=== PATIENT | male | born 1950 | race Caucasian/White ===

== ENCOUNTER 2018-12-03 10:37 | Emergency (ER) | payer OTHER, SELFPAY ==
[2018-12-03 10:42] VITALS: BP 152/85; PULSE 96; RESP 22; TEMP 36.6; O2SAT 96
--- NOTE | 2018-12-03 10:53 | ED.SOB ---
HPI - SOB/Dyspnea General Chief Complaint: Shortness of Breath/Dyspnea Stated Complaint: WATER ON LUNGS Time Seen by Provider: 12/03/18 10:50 Source: patient Mode of arrival: ambulatory Limitations: no limitations History of Present Illness the patient is a 68-year-old male with history of COPD but has quit smoking 20 years ago of presenting with increasing shortness of breath. He took his last dose of Levaquin on a 10 day course for COPD exacerbation today. He has also been on a course of prednisone. He does not feel any better. He complains of shortness of breath at rest and with exertion. He denies orthopnea. He does have a clear productive sputum. No chest pain tightness or heart palpitations. He has no fever chills or body aches. MD Complaint: shortness of breath Known history of: COPD Related Data Home Medications Medication Instructions Recorded Confirmed ipratropium-albuterol 3 ml INH PRN PRN 12/03/18 12/03/18 multivitamin 1 tab PO DAILY 12/03/18 12/03/18 Previous Rx's Medication Instructions Recorded Advair Diskus 1 puff INH BID #2 inh 02/19/18 doxycycline hyclate 100 mg PO BID #14 tab 12/03/18 prednisone 10 mg PO DAILY #30 tab 12/03/18 Allergies Allergy/AdvReac Type Severity Reaction Status Date / Time bee venom protein (honey bee) Allergy Severe ANAPHYLAXIS Verified 12/03/18 09:17 [BEE VENOM PROTEIN (HONEY BEE)] Review of Systems Review of Systems ROS Unobtainable: All systems reviewed & are unremarkable except as noted in HPI and below Constitutional Denies chills, Denies fever(s), Denies lethargy and Denies weakness Cardiovascular Denies chest pain, Denies irregular heart rhythm, Denies lightheadedness, Denies palpitations and Denies orthopnea Respiratory Reports as per HPI Gastrointestinal Gastrointestinal: Denies abdominal pain, Denies change in bowel habits, Denies diarrhea, Denies nausea and Denies vomiting Genitourinary Denies hematuria, Denies flank pain, Denies urinary incontinence and Denies urinary urgency Musculoskeletal Denies back pain, Denies muscle weakness, Denies numbness and Denies tingling Integumentary/Breasts Denies pruritus, Denies erythema, Denies rash and Denies wounds Neurologic Denies numbness, Denies tingling and Denies weakness Endocrine Denies palpitations PFSH Medical History COPD (chronic obstructive pulmonary disease) (Acute) Social History Smoking Status: Former smoker Social History Smoking Status: Former smoker Exam Initial Vital Signs Initial Vital Signs: Vital Signs Temperature 97.8 F 12/03/18 10:42 Pulse Rate 96 H 12/03/18 10:42 Respiratory Rate 22 12/03/18 10:42 Blood Pressure 152/85 H 12/03/18 10:42 Pulse Oximetry 96 12/03/18 10:42 GENERAL: alert well-appearing male HEENT: Head atraumatic,EOMI, pupils reactive, face symmetric CARDIOVASCULAR: Regular rate and rhythm without murmurs, rubs or gallops. RESPIRATORY: coarse breath sounds bilaterally minimal wheezing speaks in full sentences no respiratory distress ABDOMEN: Soft, nontender. Normoactive bowel sounds all 4 quadrants. No guarding or rebound. : No CVA tenderness EXTREMITIES: Normal range of motion, no clubbing or edema. Neurovascularly intact NEUROLOGICAL: Alert and oriented x4.Normal gait and speech. SKIN: Warm, dry, no laceration, no petechiae, no rashes or lesions. Course Orders Ordered: ED Orders 12/03/18 10:59 Consult to Respiratory Therapy Evaluate & Treat XR chest 2V Stat EKG-12 Lead Stat 12/03/18 11:11 B Type Natriuretic Peptide Stat Complete Blood Count AUTO DIFF Stat Comprehensive Metabolic Panel Stat Magnesium Stat Partial Thromboplastin Time Stat Procalcitonin Stat Prothrombin Time INR Stat Troponin & CK Cardiac Panel Stat 12/03/18 12:08 CT angio chest PE protocol Stat Discontinued Medications Albuterol/Ipratropium (Duoneb) 3 ml INH NOW ONE Stop: 12/03/18 11:01 Last Admin: 12/03/18 11:01 Dose: 3 ml Vital Signs - 8 hr 12/03/18 10:42 12/03/18 11:02 12/03/18 11:09 Temperature 97.8 F Pulse Rate 96 H 93 H 101 H Respiratory Rate 22 14 20 Blood Pressure 152/85 H Blood Pressure [Left Arm] 143/80 H Pulse Oximetry 96 97 98 12/03/18 13:03 Temperature Pulse Rate 97 H Respiratory Rate 23 Blood Pressure Blood Pressure [Left Arm] Pulse Oximetry 88 L MDM - SOB/Dyspnea Lab Data Attestation: I reviewed the patient's lab results. Result diagrams: 12/03/18 11:11 12/03/18 11:11 Lab Results 12/03/18 12/03/18 12/03/18 Range/Units 11:11 11:11 11:11 WBC 15.8 H (4.5-11.0) X10^3/uL RBC 4.51 (4.5-5.9) X10^6/uL Hgb 14.3 (13.5-17.5) g/dL Hct 41.7 (41-53) % MCV 92.3 (80-100) fL MCH 31.6 (26-34) PG MCHC 34.2 (30-36) % RDW 13.2 (11.6-14.8) % Plt Count 528 H (150-400) X10^3/uL Neut % (Auto) 81.4 H (50-75) % Lymph % (Auto) 12.1 L (25-40) % Dale % (Auto) 5.8 (3-14) % Eos % (Auto) 0.3 L (2-4) % Baso % (Auto) 0.4 (0-2) % Neut # (Auto) 51112 H (0315-1301) /uL Lymph # (Auto) 1900 (9716-2566) /uL Dale # (Auto) 900 (0-900) /uL Eos # (Auto) 0 (0-450) /uL Baso # (Auto) 100 (0-100) /uL PT 13.9 H (10.1-12.7) SECONDS INR 1.2 (0.9-1.3) APTT 33 (26.4-36.2) SECONDS Sodium 138 (137-145) mmol/L Potassium 4.2 (3.4-5.1) mmol/L Chloride 100 (98-107) mmol/L Carbon Dioxide 25 (22-32) mmol/L BUN 15 (9-20) mg/dL Creatinine 0.80 (0.66-1.25) mg/dL Estimated GFR > 60.0 (>60) mL/min BUN/Creatinine Ratio 18.8 (6-22) Glucose 116 H (80-110) mg/dL Calcium 9.2 (8.4-10.2) mg/dL Magnesium 2.0 (1.6-2.3) mg/dL Total Bilirubin 1.2 (0.2-1.3) mg/dL AST 32 (17-59) IU/L ALT 111 H (21-72) IU/L Alkaline Phosphatase 84 (38-126) U/L Total Creatine Kinase 29 L (55-170) U/L CK-MB (CK-2) TNP CK-MB (CK-2) Rel Index TNP Troponin I < 0.012 (0.01-0.034) ng/mL B-Natriuretic Peptide 131 H (<100) Total Protein 7.4 (6.3-8.2) g/dL Albumin 4.2 (3.5-5.0) g/dL Globulin 3.2 (1.7-4.1) g/dL Albumin/Globulin Ratio 1.3 (1.0-2.8) Procalcitonin (<0.5) ng/mL 12/03/18 Range/Units 11:11 WBC (4.5-11.0) X10^3/uL RBC (4.5-5.9) X10^6/uL Hgb (13.5-17.5) g/dL Hct (41-53) % MCV (80-100) fL MCH (26-34) PG MCHC (30-36) % RDW (11.6-14.8) % Plt Count (150-400) X10^3/uL Neut % (Auto) (50-75) % Lymph % (Auto) (25-40) % Dale % (Auto) (3-14) % Eos % (Auto) (2-4) % Baso % (Auto) (0-2) % Neut # (Auto) (5958-4228) /uL Lymph # (Auto) (6936-5865) /uL Dale # (Auto) (0-900) /uL Eos # (Auto) (0-450) /uL Baso # (Auto) (0-100) /uL PT (10.1-12.7) SECONDS INR (0.9-1.3) APTT (26.4-36.2) SECONDS Sodium (137-145) mmol/L Potassium (3.4-5.1) mmol/L Chloride (98-107) mmol/L Carbon Dioxide (22-32) mmol/L BUN (9-20) mg/dL Creatinine (0.66-1.25) mg/dL Estimated GFR (>60) mL/min BUN/Creatinine Ratio (6-22) Glucose (80-110) mg/dL Calcium (8.4-10.2) mg/dL Magnesium (1.6-2.3) mg/dL Total Bilirubin (0.2-1.3) mg/dL AST (17-59) IU/L ALT (21-72) IU/L Alkaline Phosphatase (38-126) U/L Total Creatine Kinase (55-170) U/L CK-MB (CK-2) CK-MB (CK-2) Rel Index Troponin I (0.01-0.034) ng/mL B-Natriuretic Peptide (<100) Total Protein (6.3-8.2) g/dL Albumin (3.5-5.0) g/dL Globulin (1.7-4.1) g/dL Albumin/Globulin Ratio (1.0-2.8) Procalcitonin < 0.05 (<0.5) ng/mL Imaging Data Chest x-ray: Radiologist's impression: PROCEDURE: XR CHEST 2V INDICATIONS: short of breath, crackles TECHNIQUE: 2 views of the chest were acquired. COMPARISON: [facility], CHEST 2 VIEW, 09/11/2017, 12:11. FINDINGS: Surgical changes and devices: None. Lungs and pleura: Patchy opacity noted in the posterior aspect of the left lung base concerning for aspiration versus pneumonia. No pleural effusions or pneumothorax. Mediastinum: Mediastinal contours are normal. Heart size is normal. Bones and chest wall: No suspicious bony abnormalities. Soft tissues appear unremarkable. IMPRESSION: Posterior left basilar opacity suspicious for aspiration versus pneumonia. Dictated by: Arina Dennis MD, PhD on 12/03/2018 at 11:26 CT scan - chest: Radiologist's impression: PROCEDURE: CT ANGIO CHEST PE PROTOCOL INDICATIONS: short of breath TECHNIQUE: After the administration of intravenous contrast, 2 mm thick sections acquired from the pulmonary apices to the posterior costophrenic angles. 3-dimensional maximum intensity projection (MIP) coronal and sagittal reformats were then acquired through the thorax. For radiation dose reduction, the following was used: automated exposure control, adjustment of mA and/or kV according to patient size. COMPARISON: [facility], XR CHEST 2V, 12/03/2018, 11:14. FINDINGS: Image quality: Excellent. Pulmonary arteries: Pulmonary arteries are normal in size, and demonstrate no intraluminal filling defects to suggest central pulmonary embolism. Lungs and pleura: Moderate apical predominant emphysema. Moderate left posterior lung base airspace opacity, consistent with pneumonia, as seen by plain film examination. Mild patchy opacity within the right lung base, consistent with pneumonia. Mild scattered groundglass nodular densities within the bilateral upper lobes, consistent with endobronchial spread of pneumonia. No pleural effusions or pneumothorax. Central and peripheral airways are patent. Mediastinum: Heart size is normal, without pericardial effusion. Left infrahilar adenopathy measuring 15 mm. 13 mm short axis subcarinal/periesophageal adenopathy. 15 mm short axis right infrahilar adenopathy. Thoracic aorta is normal in caliber and enhancement. Esophagus is normal in caliber, without hiatal hernia. Bones and chest wall: No suspicious bony lesions. Ribs and thoracic spine appear intact throughout. Thyroid gland demonstrates bilateral nodules, largest of which are in the right lobe, measuring 13 mm anteriorly and 8 mm posteriorly.. No axillary or supraclavicular adenopathy. Abdomen: Visualized upper abdominal solid organs appear normal in the early arterial phase of enhancement. IMPRESSION: 1. Left lung base pneumonia, as seen by plain film examination. Lesser degrees of pneumonia are seen elsewhere within the bilateral lung parenchyma. 2. Mediastinal and hilar adenopathy, presumably reactive. Followup chest CT with contrast in one month is recommended to assure resolution, and to exclude underlying malignancy. 3. Thyroid nodules, which could be further assessed with ultrasound, if clinically indicated. 4. No evidence of pulmonary embolus. Dictated by: Humphrey Valverde M.D. on 12/03/2018 at 12:33 ECG Data Attestation: I personally reviewed and interpreted this ECG as follows: Prior ECG tracings: available for review ( From walk-in clinic) Interpretation: normal sinus rhythm rate 90 RI [address] changes no T-wave inversions similar to previous 1 earlier in the day MDM Narrative Medical decision making narrative: patient's history of COPD. He stating that the breathing treatment he received here seemed to open up more. His he had 1 at the walk-in clinic and did not have much relief. He does have leukocytosis persistent pneumonia on x-ray and persistent cough. CT ruled out PE. The patient is still having signs and symptoms of pneumonia with radiological evidence and leukocytosis. PATIENT AMBULATION TRIAL OF TO SATS DROPPED TO 87 88%. WITH REST THEY DO QUICKLY COME BACK UP. PATIENT IS REQUESTING TO GO HOME RATHER THAN BE ADMITTED TO HOSPITAL. I spoke with Dr. Brown who agrees to follow up on Friday. Aware that the patient's oxygen level does decrease but does quickly recover and patient wanting to go home. Discharge Plan Departure Patient Disposition: Home Clinical Impression: Pneumonia Qualifiers: Pneumonia type: due to unspecified organism Laterality: left Lung location: lower lobe of lung Qualified Code(s): J18.1 - Lobar pneumonia, unspecified organism Discharge Date/Time: 12/03/18 13:50 Interventions: ED Discharge Assessment Last Done: 12/03/18 13:50 Instructions: DI for Pneumonia -- Adult Activity Restrictions/Additional Instructions: *You have been diagnosed with left lower lobe pneumonia *What to do: x-ray, CT and blood work do confirm persistent ongoing pneumonia despite antibiotics. At this time no hospitalization required. *Continue to take medications as directed --> SENT TO [facility] IN [place] Prednisone taper as 40 mg for 3 days, 30 mg for 3 days, 20 mg for 3 days, 10 mg for 3 days and stop doxycycline 100 mg twice a day for 7 days continue albuterol nebulizer every 4 hours as needed. *Follow up with Dr. Brown FridayDecember 07 at 2:45 p.m. *Return to ER if you should have increasing shortness of breath, chest pain or any new, worsening or concerning symptoms Prescriptions: New doxycycline hyclate 100 mg tablet 100 mg PO BID Qty: 14 RF: 0 prednisone 10 mg tablet 10 mg PO DAILY Qty: 30 RF: 0 No Action Advair Diskus 250-50 mcg/dose blister with device 1 puff INH BID Qty: 2 RF: 9 ipratropium-albuterol 3 ML solution for nebulization 3 ml INH PRN PRN (Reason: Shortness Of Breath Or Wheezing) RF: 0 multivitamin Tablet 1 tab PO DAILY RF: 0 Referrals: Bruce Brown MD [Primary Care Provider] -
--- NOTE | 2018-12-03 10:58 | ED_ITS ---
HPI - SOB/Dyspnea General Chief Complaint: Shortness of Breath/Dyspnea Stated Complaint: WATER ON LUNGS Time Seen by Provider: 12/03/18 10:50 Source: patient Mode of arrival: ambulatory Limitations: no limitations History of Present Illness the patient is a 68-year-old male with history of COPD but has quit smoking 20 years ago of presenting with increasing shortness of breath. He took his last dose of Levaquin on a 10 day course for COPD exacerbation today. He has also been on a course of prednisone. He does not feel any better. He complains of shortness of breath at rest and with exertion. He denies orthopnea. He does have a clear productive sputum. No chest pain tightness or heart palpitations. He has no fever chills or body aches. MD Complaint: shortness of breath Known history of: COPD Related Data Home Medications Medication Instructions Recorded Confirmed ipratropium-albuterol 3 ml INH PRN PRN 12/03/18 12/03/18 multivitamin 1 tab PO DAILY 12/03/18 12/03/18 Previous Rx's Medication Instructions Recorded Advair Diskus 1 puff INH BID #2 inh 02/19/18 doxycycline hyclate 100 mg PO BID #14 tab 12/03/18 prednisone 10 mg PO DAILY #30 tab 12/03/18 Allergies Allergy/AdvReac Type Severity Reaction Status Date / Time bee venom protein (honey bee) Allergy Severe ANAPHYLAXIS Verified 12/03/18 09:17 [BEE VENOM PROTEIN (HONEY BEE)] Review of Systems Review of Systems ROS Unobtainable: All systems reviewed & are unremarkable except as noted in HPI and below Constitutional Denies chills, Denies fever(s), Denies lethargy and Denies weakness Cardiovascular Denies chest pain, Denies irregular heart rhythm, Denies lightheadedness, Denies palpitations and Denies orthopnea Respiratory Reports as per HPI Gastrointestinal Gastrointestinal: Denies abdominal pain, Denies change in bowel habits, Denies diarrhea, Denies nausea and Denies vomiting Genitourinary Denies hematuria, Denies flank pain, Denies urinary incontinence and Denies urinary urgency Musculoskeletal Denies back pain, Denies muscle weakness, Denies numbness and Denies tingling Integumentary/Breasts Denies pruritus, Denies erythema, Denies rash and Denies wounds Neurologic Denies numbness, Denies tingling and Denies weakness Endocrine Denies palpitations PFSH Medical History COPD (chronic obstructive pulmonary disease) (Acute) Social History Smoking Status: Former smoker Social History Smoking Status: Former smoker Exam Initial Vital Signs Initial Vital Signs: Vital Signs Temperature 97.8 F 12/03/18 10:42 Pulse Rate 96 H 12/03/18 10:42 Respiratory Rate 22 12/03/18 10:42 Blood Pressure 152/85 H 12/03/18 10:42 Pulse Oximetry 96 12/03/18 10:42 GENERAL: alert well-appearing male HEENT: Head atraumatic,EOMI, pupils reactive, face symmetric CARDIOVASCULAR: Regular rate and rhythm without murmurs, rubs or gallops. RESPIRATORY: coarse breath sounds bilaterally minimal wheezing speaks in full sentences no respiratory distress ABDOMEN: Soft, nontender. Normoactive bowel sounds all 4 quadrants. No guarding or rebound. : No CVA tenderness EXTREMITIES: Normal range of motion, no clubbing or edema. Neurovascularly intact NEUROLOGICAL: Alert and oriented x4.Normal gait and speech. SKIN: Warm, dry, no laceration, no petechiae, no rashes or lesions. Course Orders Ordered: ED Orders 12/03/18 10:59 Consult to Respiratory Therapy Evaluate & Treat XR chest 2V Stat EKG-12 Lead Stat 12/03/18 11:11 B Type Natriuretic Peptide Stat Complete Blood Count AUTO DIFF Stat Comprehensive Metabolic Panel Stat Magnesium Stat Partial Thromboplastin Time Stat Procalcitonin Stat Prothrombin Time INR Stat Troponin & CK Cardiac Panel Stat 12/03/18 12:08 CT angio chest PE protocol Stat Discontinued Medications Albuterol/Ipratropium (Duoneb) 3 ml INH NOW ONE Stop: 12/03/18 11:01 Last Admin: 12/03/18 11:01 Dose: 3 ml Vital Signs - 8 hr 12/03/18 10:42 12/03/18 11:02 12/03/18 11:09 Temperature 97.8 F Pulse Rate 96 H 93 H 101 H Respiratory Rate 22 14 20 Blood Pressure 152/85 H Blood Pressure [Left Arm] 143/80 H Pulse Oximetry 96 97 98 12/03/18 13:03 Temperature Pulse Rate 97 H Respiratory Rate 23 Blood Pressure Blood Pressure [Left Arm] Pulse Oximetry 88 L MDM - SOB/Dyspnea Lab Data Attestation: I reviewed the patient's lab results. Result diagrams: 12/03/18 11:11 12/03/18 11:11 Lab Results 12/03/18 12/03/18 12/03/18 Range/Units 11:11 11:11 11:11 WBC 15.8 H (4.5-11.0) X10^3/uL RBC 4.51 (4.5-5.9) X10^6/uL Hgb 14.3 (13.5-17.5) g/dL Hct 41.7 (41-53) % MCV 92.3 (80-100) fL MCH 31.6 (26-34) PG MCHC 34.2 (30-36) % RDW 13.2 (11.6-14.8) % Plt Count 528 H (150-400) X10^3/uL Neut % (Auto) 81.4 H (50-75) % Lymph % (Auto) 12.1 L (25-40) % [place] % (Auto) 5.8 (3-14) % Eos % (Auto) 0.3 L (2-4) % Baso % (Auto) 0.4 (0-2) % Neut # (Auto) 57256 H (7510-7382) /uL Lymph # (Auto) 1900 (8226-8460) /uL [place] # (Auto) 900 (0-900) /uL Eos # (Auto) 0 (0-450) /uL Baso # (Auto) 100 (0-100) /uL PT 13.9 H (10.1-12.7) SECONDS INR 1.2 (0.9-1.3) APTT 33 (26.4-36.2) SECONDS Sodium 138 (137-145) mmol/L Potassium 4.2 (3.4-5.1) mmol/L Chloride 100 (98-107) mmol/L Carbon Dioxide 25 (22-32) mmol/L BUN 15 (9-20) mg/dL Creatinine 0.80 (0.66-1.25) mg/dL Estimated GFR > 60.0 (>60) mL/min BUN/Creatinine Ratio 18.8 (6-22) Glucose 116 H (80-110) mg/dL Calcium 9.2 (8.4-10.2) mg/dL Magnesium 2.0 (1.6-2.3) mg/dL Total Bilirubin 1.2 (0.2-1.3) mg/dL AST 32 (17-59) IU/L ALT 111 H (21-72) IU/L Alkaline Phosphatase 84 (38-126) U/L Total Creatine Kinase 29 L (55-170) U/L CK-MB (CK-2) TNP CK-MB (CK-2) Rel Index TNP Troponin I < 0.012 (0.01-0.034) ng/mL B-Natriuretic Peptide 131 H (<100) Total Protein 7.4 (6.3-8.2) g/dL Albumin 4.2 (3.5-5.0) g/dL Globulin 3.2 (1.7-4.1) g/dL Albumin/Globulin Ratio 1.3 (1.0-2.8) Procalcitonin (<0.5) ng/mL 12/03/18 Range/Units 11:11 WBC (4.5-11.0) X10^3/uL RBC (4.5-5.9) X10^6/uL Hgb (13.5-17.5) g/dL Hct (41-53) % MCV (80-100) fL MCH (26-34) PG MCHC (30-36) % RDW (11.6-14.8) % Plt Count (150-400) X10^3/uL Neut % (Auto) (50-75) % Lymph % (Auto) (25-40) % [place] % (Auto) (3-14) % Eos % (Auto) (2-4) % Baso % (Auto) (0-2) % Neut # (Auto) (2584-4974) /uL Lymph # (Auto) (7689-5589) /uL [place] # (Auto) (0-900) /uL Eos # (Auto) (0-450) /uL Baso # (Auto) (0-100) /uL PT (10.1-12.7) SECONDS INR (0.9-1.3) APTT (26.4-36.2) SECONDS Sodium (137-145) mmol/L Potassium (3.4-5.1) mmol/L Chloride (98-107) mmol/L Carbon Dioxide (22-32) mmol/L BUN (9-20) mg/dL Creatinine (0.66-1.25) mg/dL Estimated GFR (>60) mL/min BUN/Creatinine Ratio (6-22) Glucose (80-110) mg/dL Calcium (8.4-10.2) mg/dL Magnesium (1.6-2.3) mg/dL Total Bilirubin (0.2-1.3) mg/dL AST (17-59) IU/L ALT (21-72) IU/L Alkaline Phosphatase (38-126) U/L Total Creatine Kinase (55-170) U/L CK-MB (CK-2) CK-MB (CK-2) Rel Index Troponin I (0.01-0.034) ng/mL B-Natriuretic Peptide (<100) Total Protein (6.3-8.2) g/dL Albumin (3.5-5.0) g/dL Globulin (1.7-4.1) g/dL Albumin/Globulin Ratio (1.0-2.8) Procalcitonin < 0.05 (<0.5) ng/mL Imaging Data Chest x-ray: Radiologist's impression: PROCEDURE: XR CHEST 2V INDICATIONS: short of breath, crackles TECHNIQUE: 2 views of the chest were acquired. COMPARISON: [facility], CHEST 2 VIEW, 09/11/2017, 12:11. FINDINGS: Surgical changes and devices: None. Lungs and pleura: Patchy opacity noted in the posterior aspect of the left lung base concerning for aspiration versus pneumonia. No pleural effusions or pneumothorax. Mediastinum: Mediastinal contours are normal. Heart size is normal. Bones and chest wall: No suspicious bony abnormalities. Soft tissues appear unremarkable. IMPRESSION: Posterior left basilar opacity suspicious for aspiration versus pn eumonia. Dictated by: Arina Dennis MD, PhD on 12/03/2018 at 11:26 CT scan - chest: Radiologist's impression: PROCEDURE: CT ANGIO CHEST PE PROTOCOL INDICATIONS: short of breath TECHNIQUE: After the administration of intravenous contrast, 2 mm thick sections acquired from the pulmonary apices to the posterior costophrenic angles. 3-dimensional maximum intensity projection (MIP) coronal and sagittal reformats were then acquired through the thorax. For radiation dose reduction, the following was used: automated exposure control, adjustment of mA and/or kV according to patient size. COMPARISON: [facility], XR CHEST 2V, 12/03/2018, 11:14. FINDINGS: Image quality: Excellent. Pulmonary arteries: Pulmonary arteries are normal in size, and demonstrate no intraluminal filling defects to suggest central pulmonary embolism. Lungs and pleura: Moderate apical predominant emphysema. Moderate left posterior lung base airspace opacity, consistent with pneumonia, as seen by plain film examination. Mild patchy opacity within the right lung base, consistent with pneumonia. Mild scattered groundglass nodular densities within the bilateral upper lobes, consistent with endobronchial spread of pneumonia. No pleural effusions or pneumothorax. Central and peripheral airways are patent. Mediastinum: Heart size is normal, without pericardial effusion. Left infrahila r adenopathy measuring 15 mm. 13 mm short axis subcarinal/periesophageal adenopathy. 15 mm short axis right infrahilar adenopathy. Thoracic aorta is normal in caliber and enhancement. Esophagus is normal in caliber, without hiatal hernia. Bones and chest wall: No suspicious bony lesions. Ribs and thoracic spine appear intact throughout. Thyroid gland demonstrates bilateral nodules, largest of which are in the right lobe, measuring 13 mm anteriorly and 8 mm posteriorly.. No axillary or supraclavicular adenopathy. Abdomen: Visualized upper abdominal solid organs appear normal in the early arterial phase of enhancement. IMPRESSION: 1. Left lung base pneumonia, as seen by plain film examination. Lesser degrees of pneumonia are seen elsewhere within the bilateral lung parenchyma. 2. Mediastinal and hilar adenopathy, presumably reactive. Followup chest CT with contrast in one month is recommended to assure resolution, and to exclude underlying malignancy. 3. Thyroid nodules, which could be further assessed with ultrasound, if clinically indicated. 4. No evidence of pulmonary embolus. Dictated by: Humphrey Valverde M.D. on 12/03/2018 at 12:33 ECG Data Attestation: I personally reviewed and interpreted this ECG as follows: Prior ECG tracings: available for review ( From walk-in clinic) Interpretation: normal sinus rhythm rate 90 [address] changes no T- wave inversions similar to previous 1 earlier in the day MDM Narrative Medical decision making narrative: patient's history of COPD. He stating that the breathing treatment he received here seemed to open up more. His he had 1 at the walk-in clinic and did not have much relief. He does have leukocytosis persistent pneumonia on x-ray and persistent cough. CT ruled out PE. The patient is still having signs and symptoms of pneumonia with radiological evidence and leukocytosis. PATIENT AMBULATION TRIAL OF TO SATS DROPPED TO 87 88%. WITH REST THEY DO QUICKLY COME BACK UP. PATIENT IS REQUESTING TO GO HOME RATHER THAN BE ADMITTED TO HOSPITAL. I spoke with Dr. Brown who agrees to follow up on Friday. Aware that the patient's oxygen level does decrease but does quickly recover and patient wanting to go home. Discharge Plan Departure Patient Disposition: Home Clinical Impression: Pneumonia Qualifiers: Pneumonia type: due to unspecified organism Laterality: left Lung location: lower lobe of lung Qualified Code(s): J18.1 - Lobar pneumonia, unspecified organism Discharge Date/Time: 12/03/18 13:50 Interventions: ED Discharge Assessment Last Done: 12/03/18 13:50 Instructions: DI for Pneumonia -- Adult Activity Restrictions/Additional Instructions: *You have been diagnosed with left lower lobe pneumonia *What to do: x-ray, CT and blood work do confirm persistent ongoing pneumonia despite antibiotics. At this time no hospitalization required. *Continue to take medications as directed --> SENT TO [facility] IN [place] Prednisone taper as 40 mg for 3 days, 30 mg for 3 days, 20 mg for 3 days, 10 mg for 3 days and stop doxycycline 100 mg twice a day for 7 days continue albuterol nebulizer every 4 hours as needed. *Follow up with Dr. Brown FridayDecember 07 at 2:45 p.m. *Return to ER if you should have increasing shortness of breath, chest pain or any new, worsening or concerning symptoms Prescriptions: New doxycycline hyclate 100 mg tablet 100 mg PO BID Qty: 14 RF: 0 prednisone 10 mg tablet 10 mg PO DAILY Qty: 30 RF: 0 No Action Advair Diskus 250-50 mcg/dose blister with device 1 puff INH BID Qty: 2 RF: 9 ipratropium-albuterol 3 ML solution for nebulization 3 ml INH PRN PRN (Reason: Shortness Of Breath Or Wheezing) RF: 0 multivitamin Tablet 1 tab PO DAILY RF: 0 Referrals: Bruce Brown MD [Primary Care Provider] -
--- NOTE | 2018-12-03 10:59 | DI.RAD.S_ITS ---
PROCEDURE: XR CHEST 2V INDICATIONS: short of breath, crackles TECHNIQUE: 2 views of the chest were acquired. COMPARISON: [facility], , CHEST 2 VIEW, 09/11/2017, 12:11. FINDINGS: Surgical changes and devices: None. Lungs and pleura: Patchy opacity noted in the posterior aspect of the left lung base concerning for aspiration versus pneumonia. No pleural effusions or pneumothorax. Mediastinum: Mediastinal contours are normal. Heart size is normal. Bones and chest wall: No suspicious bony abnormalities. Soft tissues appear unremarkable. IMPRESSION: Posterior left basilar opacity suspicious for aspiration versus pneumonia. Dictated by: Arina Dennis MD, PhD on 12/03/2018 at 11:26 Approved by: Arina Dennis MD, PhD on 12/03/2018 at 11:27
[2018-12-03] MEDS: ALBUTEROL/IPRATROPIUM 3 ML AMPUL INH (11:01)
[2018-12-03 11:02] VITALS: PULSE 93; RESP 14; O2SAT 97
--- NOTE | 2018-12-03 11:07 | PC.NURSE ---
pt reports, started with flu 15 of november , then dropped down to the lung, coughing, treated with levofloxacin last dose today, took prednisone last dose 3 days ago, continue to have crackles, nebulizer treatment three times a day. still has shortness of breath, denies chest pain, fever or nausea\vomiting. former smoker quit 20 years ago. pt sent from walk in clinic.
[2018-12-03 11:09] VITALS: BP 143/80; PULSE 101; RESP 20; O2SAT 98
[2018-12-03 11:28] LABS: Add Manual Diff / Slide Review NO; Basophils Absolute Auto 100 /uL (0-100); Basophils Percent Auto 0.4 % (0-2); Eosinophils Absolute Auto 0 /uL (0-450); Eosinophils Percent Auto 0.3 % (2-4); Hematocrit 41.7 % (41-53); Hemoglobin 14.3 g/dL (13.5-17.5); INR 1.2 (0.9-1.3); Lymphocytes Absolute Auto 1900 /uL (1100-4500); Lymphocytes Percent Auto 12.1 % (25-40); Mean Corpuscular HGB Conc 34.2 % (30-36); Mean Corpuscular Hemoglobin 31.6 PG (26-34); Mean Corpuscular Volume 92.3 fL (80-100); Monocytes Absolute Auto 900 /uL (0-900); Monocytes Percent Auto 5.8 % (3-14); Neutrophils Absolute Auto 12900 /uL (1500-7000); Neutrophils Percent Auto 81.4 % (50-75); Platelet Count 528 X10^3/uL (150-400); Prothrombin Time 13.9 SECONDS (10.1-12.7); Red Blood Cell Count 4.51 X10^6/uL (4.5-5.9); Red Cell Distribution Width 13.2 % (11.6-14.8); White Blood Cell Count 15.8 X10^3/uL (4.5-11.0)
[2018-12-03 11:31] LABS: PTT Partial Thromboplastin Tim 33 SECONDS (26.4-36.2)
[2018-12-03 11:37] LABS: Alanine Aminotransferase 111 IU/L (21-72); Albumin 4.2 g/dL (3.5-5.0); Albumin Globulin Ratio 1.3 (1.0-2.8); Alkaline Phosphatase 84 U/L (38-126); Aspartate Aminotransferase 32 IU/L (17-59); BUN Creatinine Ratio 18.8 (6-22); Bilirubin Total 1.2 mg/dL (0.2-1.3); Blood Urea Nitrogen 15 mg/dL (9-20); Calcium 9.2 mg/dL (8.4-10.2); Carbon Dioxide 25 mmol/L (22-32); Chloride 100 mmol/L (98-107); Creatine Kinase 29 U/L (55-170); Estimated Glomerular Filt Rate > 60.0 mL/min (>60); Globulin 3.2 g/dL (1.7-4.1); Glucose 116 mg/dL (80-110); HEMOLYSIS < 15 (0-50); Potassium 4.2 mmol/L (3.4-5.1); Sodium 138 mmol/L (137-145); Total Protein 7.4 g/dL (6.3-8.2)
[2018-12-03 11:44] LABS: B Type Natriuretic Peptide 131 (<100)
[2018-12-03 11:47] LABS: Troponin I < 0.012 ng/mL (0.01-0.034)
[2018-12-03 11:52] LABS: Procalcitonin < 0.05 ng/mL (<0.5)
--- NOTE | 2018-12-03 12:08 | DI.CT.S_ITS ---
PROCEDURE: CT ANGIO CHEST PE PROTOCOL INDICATIONS: short of breath TECHNIQUE: After the administration of intravenous contrast, 2 mm thick sections acquired from the pulmonary apices to the posterior costophrenic angles. 3-dimensional maximum intensity projection (MIP) coronal and sagittal reformats were then acquired through the thorax. For radiation dose reduction, the following was used: automated exposure control, adjustment of mA and/or kV according to patient size. COMPARISON: [facility], CR, XR CHEST 2V, 12/03/2018, 11:14. FINDINGS: Image quality: Excellent. Pulmonary arteries: Pulmonary arteries are normal in size, and demonstrate no intraluminal filling defects to suggest central pulmonary embolism. Lungs and pleura: Moderate apical predominant emphysema. Moderate left posterior lung base airspace opacity, consistent with pneumonia, as seen by plain film examination. Mild patchy opacity within the right lung base, consistent with pneumonia. Mild scattered groundglass nodular densities within the bilateral upper lobes, consistent with endobronchial spread of pneumonia. No pleural effusions or pneumothorax. Central and peripheral airways are patent. Mediastinum: Heart size is normal, without pericardial effusion. Left infrahilar adenopathy measuring 15 mm. 13 mm short axis subcarinal/periesophageal adenopathy. 15 mm short axis right infrahilar adenopathy. Thoracic aorta is normal in caliber and enhancement. Esophagus is normal in caliber, without hiatal hernia. Bones and chest wall: No suspicious bony lesions. Ribs and thoracic spine appear intact throughout. Thyroid gland demonstrates bilateral nodules, largest of which are in the right lobe, measuring 13 mm anteriorly and 8 mm posteriorly.. No axillary or supraclavicular adenopathy. Abdomen: Visualized upper abdominal solid organs appear normal in the early arterial phase of enhancement. IMPRESSION: 1. Left lung base pneumonia, as seen by plain film examination. Lesser degrees of pneumonia are seen elsewhere within the bilateral lung parenchyma. 2. Mediastinal and hilar adenopathy, presumably reactive. Followup chest CT with contrast in one month is recommended to assure resolution, and to exclude underlying malignancy. 3. Thyroid nodules, which could be further assessed with ultrasound, if clinically indicated. 4. No evidence of pulmonary embolus. Dictated by: Humphrey Valverde M.D. on 12/03/2018 at 12:33 Approved by: Humphrey Valverde M.D. on 12/03/2018 at 12:38
[2018-12-03 13:03] VITALS: PULSE 97; RESP 23; O2SAT 88
== END 2018-12-03 13:50 | disposition home or self-care (01) ==
PROVIDERS: Emergency Provider Emergency Medicine; PCP Family Medicine
DX: J18.1 Lobar pneumonia, unspecified organism (principal)
CPT/HCPCS: 36591; 71046; 71275; 80053; 82550; 83735; 83880; 84145; 84484; 85025; 85610; 85730; 93005; 93010; 94640; 99282; 99285; Q9967

== ENCOUNTER → 2018-12-21 11:03 | Outpatient (CLI) | payer OTHER, SELFPAY ==
[2018-12-21 12:00] LABS: BUN Creatinine Ratio 16.7 (6-22); Blood Urea Nitrogen 10 mg/dL (9-20); Estimated Glomerular Filt Rate > 60.0 mL/min (>60)
== END ==
PROVIDERS: PCP Family Medicine; Visit Provider Family Medicine
DX: R93.89 Abnormal findings on diagnostic imaging of other specified body structures (principal)
CPT/HCPCS: 36415; 82565; 84520

== ENCOUNTER → 2019-01-04 12:42 | Outpatient (CLI) | payer OTHER, SELFPAY ==
--- NOTE | 2019-01-04 12:45 | DI.US.S_ITS ---
PROCEDURE: US THYROID INDICATIONS: cysts TECHNIQUE: Real-time scanning was performed of the thyroid gland, with image documentation. COMPARISON: None. FINDINGS: Right: Thyroid lobe measures 4.7 x 1.9 x 1.8 cm, and is homogeneous in echotexture. Left: Thyroid lobe measures 4.5 x 1.6 x 1.5 cm, and is homogenous in echotexture. Isthmus: 4 mm thick. Nodule number: 1 Location: Right inferior Size: 1.6 x 1.2 x 1.5 cm. Composition: Solid Echogenicity: Isoechoic Shape: wider than tall. Margins: Garcia Echogenic foci: None Total points: 3 ACR TI-RADS category: 3 Nodule number: 2 Location: Left mid Size: 0.6 x 0.5 x 0.6 cm. Composition: Solid Echogenicity: Hypoechoic Shape: wider than tall. Margins: Smooth Echogenic foci: None Total points: 4 ACR TI-RADS category: 4 Nodule number: 3 Location: Left inferior Size: 0.9 x 0.7 x 0.8 cm. Composition: Solid Echogenicity: Markedly hypoechoic Shape: wider than tall. Margins: Smooth Echogenic foci: None Total points: 5 ACR TI-RADS category: 5 IMPRESSION: 1. Nodule 1 corresponds to Category 3 lesion with recommendation of followup at one, 3 and 5 years. 2. Nodule 2 corresponds to Category 4 lesion. Due to small size, no additional followup is recommended. 3. Nodule 3 corresponds to Category 5 lesion, recommending followup every year for 5 years. ACR TI-RADS definitions and recommendations: TI-RADS 1 (benign): 0 points. FNA not needed. TI-RADS 2 (not suspicious): 2 points. FNA not needed. TI-RADS 3 (mildly suspicious): 3 points. * FNA if 2.5 cm or larger, follow up if 1.5 cm or larger (at 1, 3, and 5 years). TI-RADS 4 (moderately suspicious): 4-6 points. * FNA if 1.5 cm or larger, follow up if 1 cm or larger (at 1, 2, 3, and 5 years). TI-RADS 5 (highly suspicious): 7 points or more. * FNA if 1 cm or larger, follow up if 0.5 cm or larger (every year for 5 years). Dictated by: Danielle Barrientos M.D. on 01/04/2019 at 16:15 Approved by: Danielle Barrientos M.D. on 01/04/2019 at 16:20
--- NOTE | 2019-01-04 13:09 | DI.CT.S_ITS ---
PROCEDURE: CT CHEST W CON INDICATIONS: f/u chest ct TECHNIQUE: After the administration of intravenous contrast, 5 mm thick sections acquired from the pulmonary apices to the posterior costophrenic angles. 7 mm thick coronal and sagittal MIP reformats were acquired. For radiation dose reduction, the following was used: automated exposure control, adjustment of mA and/or kV according to patient size. COMPARISON: [facility], CT, CT ANGIO CHEST PE PROTOCOL, 12/03/2018, 11:59. FINDINGS: Image quality: Excellent. Lungs and pleura: No acute consolidation is seen. Bilateral upper lobe predominant centrilobular emphysema and scattered scarring here there are multiple bilateral pleural blebs as before. Bilateral widespread ill-defined upper and lower lobe patchy groundglass and ill-defined consolidative and nodular opacities are again noted and these have progressed since prior study in size and conspicuity. For example in the right midlung, image 38 series 3, multiple 1 cm or less areas of nodular groundglass opacity are seen which are new since the prior study. Patchy consolidation within the left lower lobe is grossly unchanged since 12/03/18. In the right middle lobe on image 46 series 3 a 1.5 cm ill-defined nodular consolidative and groundglass lesion, which appears new since prior study. No pleural effusions or pneumothorax. Central and peripheral airways are patent and normal in caliber. Mediastinum: Heart size is normal. No pericardial effusion. No mediastinal or hilar adenopathy by size criteria. Thoracic aorta and central pulmonary arteries are normal in size. Esophagus is normal in caliber. No hiatal hernia. Bones and chest wall: No suspicious bony lesions. No vertebral body compression fractures. No axillary or supraclavicular adenopathy by size criteria. Thyroid gland demonstrates multiple nodules as before and recommend correlation with ultrasound evaluation (as previously recommended). Abdomen: Mild hepatic steatosis. 1.2 cm left adrenal nodule, technically age-indeterminate and nonspecific although warrants continued observation. IMPRESSION: Interval progression in widespread bilateral upper lower lobe ill-defined patchy consolidative or groundglass nodular opacities since 12/03/18. Given the groundglass attenuation these findings could represent persistent multifocal pneumonia or other intrinsic inflammatory etiology. No definite cavitation is seen although septic emboli in the differential, as well as atypical/viral infection. Please correlate clinically and with laboratory data and recommend continued surveillance with CT to document resolution or improvement after treatment and exclude metastatic or malignant possibilities. Thyroid nodules as before. Recommend ultrasound evaluation as previously recommended. Dictated by: Deng Oswald M.D. on 01/04/2019 at 14:04 Approved by: Deng Oswald M.D. on 01/04/2019 at 14:14
== END ==
PROVIDERS: PCP Family Medicine; Visit Provider Family Medicine
DX: R59.0 Localized enlarged lymph nodes (principal); J98.4 Other disorders of lung; J43.2 Centrilobular emphysema; K76.0 Fatty (change of) liver, not elsewhere classified; E27.9 Disorder of adrenal gland, unspecified; E04.2 Nontoxic multinodular goiter
CPT/HCPCS: 71260; 76536; Q9967

== ENCOUNTER → 2019-03-22 09:54 | Outpatient (CLI) | payer OTHER, SELFPAY ==
--- NOTE | 2019-03-22 | DI.CT.S_ITS ---
PROCEDURE: CT CHEST WO CON INDICATIONS: Other nonspecific abnormal finding of lung field TECHNIQUE: Noncontrast 2.0-2.5 mm thick sections acquired from the pulmonary apices to the posterior costophrenic angles. 7 mm thick coronal and sagittal MIP reformats were then acquired. A low radiation dose technique was utilized. COMPARISON: [facility], CT, CT ANGIO CHEST PE PROTOCOL, 12/03/2018, 11:59. [facility], CT, CT CHEST W CON, 01/04/2019, 13:02. FINDINGS: Image quality: Diagnostic, given the low radiation dose technique. Lungs and pleura: There is decrease in size and attenuation of ill-defined groundglass nodule seen within the right middle lobe measuring 1.1 cm currently previously 1.6 cm. There is also interval decrease in size of poorly defined partially groundglass opacity within the right lower lobe on image 56 series 3 measuring 1.2 cm. Areas of patchy consolidation and groundglass opacity in the lower lobes have decreased or resolved. There is persistent multiple bleb formation within both upper lobes. No pleural effusion. No pneumothorax. Mediastinum: Heart size is normal. No pericardial effusion. No mediastinal adenopathy by size criteria. There are shotty subcentimeter paraesophageal lymph nodes, nonspecific. Thoracic aorta and central pulmonary arteries are normal in size. Esophagus is normal in caliber. No hiatal hernia. Bones and chest wall: No suspicious bony lesions. No vertebral body compression fractures. No axillary or supraclavicular adenopathy by size criteria. Thyroid gland contains a low density right-sided nodule measuring 9 mm, nonspecific and could be further assessed with ultrasound.. Abdomen: Low-attenuation left adrenal nodule measuring 1 cm presumably adenoma, grossly unchanged IMPRESSION: Interval improvement and resolution of multiple ill-defined partially groundglass and patchy nodular foci as detailed above, in both lower lobes suggestive of resolving inflammatory or infectious pneumonia. If clinically indicated, a followup noncontrast chest CT could be performed in January 2020. A Fleischner Society criteria for SOLID lung nodule followup. Nodule size (mm)Low-risk patientHigh-risk patient<6 (single or multiple)No routine followup.Optional CT at 12 months. 6-8 (single or multiple)CT at 6-12 months, then optional CT at 18-24 mo.CT at 6-12 months, then CT at 18-24 months. >8 (single)CT at 3 months, PET-CT, or biopsy. Same as for low-risk pts. >8 (multiple)CT at 3-6 months, then optional CT at 18-24 mo.CT at 3-6 months, then CT at 18-24 months. Fleischner Society criteria for SUB-SOLID lung nodule followup. Solitary pure ground-glass nodules<6 mm (ground glass or part solid)No followup needed. 6 mm or larger (ground glass)CT at 6-12 months to confirm persistence, then CT every 2 years until 5 years.6 mm or larger (part solid)CT at 3-6 months to confirm persistence, then annual CT until 5 years if unchanged and solid component remains <6 mm. Multiple sub-solid nodules<6 mmCT at 3-6 months, then CT consider at 2 & 4 years for high risk patients. [address] at 3-6 months. Subsequent management based on most suspicious lesions. Recommendations do not apply to lung cancer screening, patients with immunosuppression, or patients with known primary cancer. Dictated by: Deng Oswald M.D. on 03/22/2019 at 12:34 Approved by: Deng Oswald M.D. on 03/22/2019 at 12:47
[2019-03-22 10:53] LABS: Hemoglobin A1C% w Est Avg Glu 4.9 % (4.0-6.0)
[2019-03-22 11:11] LABS: Cholesterol 216 mg/dL (140-199); HDL Cholesterol 69 mg/dL (40-60); LDL Cholesterol Calculated 123 mg/dL (<100); Triglycerides 121 mg/dL (35-150)
[2019-03-22 11:29] LABS: Free T3, Triiodothyronine Free 3.95 pg/mL (2.77-5.27)
[2019-03-22 11:43] LABS: Thyroid Stimulating Hormone 1.39 uIU/mL (0.47-4.68)
[2019-03-25 15:37] LABS: Anti Thyroglobulin Antibody < 1 IU/mL (< 2); Thyroid Peroxidase Antibodies 4 IU/mL (< 9)
== END ==
PROVIDERS: Family Provider Family Medicine; PCP Family Medicine; Visit Provider Internal Medicine
DX: R91.8 Other nonspecific abnormal finding of lung field (principal); E04.1 Nontoxic single thyroid nodule; E27.9 Disorder of adrenal gland, unspecified
CPT/HCPCS: 71250; 80061; 83036; 84443; 84481; 86376; 86800

== ENCOUNTER → 2019-10-22 09:53 | Outpatient (CLI) | payer OTHER, SELFPAY ==
--- NOTE | 2019-10-22 | DI.CT.S_ITS ---
PROCEDURE: CT CHEST WO CON INDICATIONS: Interstitial pulmonary disease, unspecified TECHNIQUE: Noncontrast 5 mm thick sections acquired from the pulmonary apices to the posterior costophrenic angles. 1 mm lung window, 5 mm thick coronal and sagittal and 7 mm axial MIP reformats were then acquired. For radiation dose reduction, the following was used: automated exposure control, adjustment of mA and/or kV according to patient size. COMPARISON: [facility], CT, CT CHEST W CON, 01/04/2019, 13:02. [facility], CT, CT CHEST WO CON, 03/22/2019, 10:00. FINDINGS: Image quality: Excellent. Lungs and pleura: No acute air space opacities. Note is again made of what appears to be alveolar scarring at the posterior left lung base, previously present in early 2018 and improving in March of 2019. No new area of alveolar airspace disease is seen. There is a slight degree of this finding at the posterior right lung base, no adenopathy or associated pleural effusion. No pleural effusions or pneumothorax. Central and peripheral airways are patent and normal in caliber. Mediastinum: Heart size is normal. No pericardial effusion. No mediastinal adenopathy by size criteria. Thoracic aorta and central pulmonary arteries are normal in size. Esophagus is normal in caliber. No hiatal hernia. Bones and chest wall: No suspicious bony lesions. No vertebral body compression fractures. No axillary or supraclavicular adenopathy by size criteria. Thyroid gland is not well seen by this noncontrast technique. Abdomen: Visualized upper abdominal solid organs and bowel loops appear normal in the absence of contrast. IMPRESSION: Stable lung base alveolar scarring, no evidence of active alveolar airspace disease at this time given the absence of change. No adenopathy or pleural disease is found. Dictated by: Liam Carrillo M.D. on 10/22/2019 at 11:21 Approved by: Liam Carrillo M.D. on 10/22/2019 at 11:25
== END ==
PROVIDERS: Family Provider Family Medicine; PCP Family Medicine; Visit Provider Internal Medicine
DX: J84.9 Interstitial pulmonary disease, unspecified (principal)
CPT/HCPCS: 71250

== ENCOUNTER → 2023-07-21 12:07 | Outpatient (CLI) | payer OTHER, SELFPAY | PROVIDERS: Family Provider Family Medicine; PCP Internal Medicine; Referring Provider Internal Medicine; Visit Provider Internal Medicine | DX: J43.2 Centrilobular emphysema (principal); Z87.891 Personal history of nicotine dependence | CPT/HCPCS: 94060; 94729 ==